=== PATIENT | male | born 1940 | race Caucasian/White ===

== ENCOUNTER 2016-06-10 07:39 | Outpatient (CLI) | payer OTHER ==
[2016-06-10 08:04] LABS: BASOPHILS % 0.5 (0.0-1.5); EOSINOPHILS % 4.1 % (0.0-6.8); LYMPHOCYTES # 1.4 # k/uL (0.6-4.0); MONOCYTES # 0.5 # k/uL (0.0-0.9); MONOCYTES % 6.9 % (0.0-11.0); NEUTROPHILS # 4.3 # k/uL (1.4-7.7)
[2016-06-10 08:31] LABS: eGFR (African) > 60; eGFR (Non-African) > 60
== END 2016-06-10 07:40 ==
LOC: LAB 07:39
PROVIDERS: ATTEND Internal Medicine
DX: E11.9 Type 2 diabetes mellitus without complications (principal); I10 Essential (primary) hypertension; I25.119 Atherosclerotic heart disease of native coronary artery with unspecified angina pectoris; I71.2 Thoracic aortic aneurysm, without rupture; R06.02 Shortness of breath
CPT/HCPCS: 36415; 80053; 80061; 84443; 85025

== ENCOUNTER 2016-07-17 14:50 | Outpatient (CLI) | payer OTHER | END 2016-07-17 14:52 | LOC: POD 14:50 | PROVIDERS: ATTEND Podiatrist | DX: B35.1 Tinea unguium (principal); M79.674 Pain in right toe(s); M79.675 Pain in left toe(s); E11.42 Type 2 diabetes mellitus with diabetic polyneuropathy | CPT/HCPCS: G0463 ==